=== PATIENT | female | born 2000 | race Caucasian/White ===

== ENCOUNTER 2025-04-18 11:01 | Outpatient (AMB) | payer BC, SELFPAY ==
--- NOTE | 2025-04-18 11:10 | AMB.OBINITIA ---
Vital Signs 04/18/25 11:11 Height 1.68 m Height Method Stated Weight 108.465 kg Weight Measurement Method Standing Scale BMI 38.5 BP 122/77 Blood Pressure Source Automatic Cuff Blood Pressure Location Left Upper Arm Position Sitting Respiration 17 Pulse 95 Pulse Source Monitor Temp 97.3 F Temp Source Temporal Artery Scan Pulse Oximetry (%) 95 Oxygen Delivery Method Room Air Allergies/Home Meds Allergies & Medications Allergies No Known Allergies Allergy (Verified 04/18/25 11:15) Medication Reconciliation acyclovir 400 mg tablet 400 mg PO TID 04/18/25 [History Confirmed 04/18/25] aspirin 81 mg tablet 81 mg PO QDAY 04/18/25 [History Confirmed 04/18/25] vitamin-ferrous fumarate 28 mg iron-folic acid 800 mcg tablet ( Vitamins with Minerals) 1 tab PO QDAY #60 tabs 04/18/25 [Rx] Intake Visit Data Collection New Patient or Established: New Patient (never been to [facility]) Reason for Visit:: OB TRANSFER Seen by Clinical Staff ONLY (RN/MA): No Payroll Accounting Clerk Required: No Do You Feel Safe at Home: Yes Authorities Contacted: N/A PCP or OBGYN visit in last 3 months: No Hx Now: Yes Are you currently on any form of Control: No Last menstrual period: 08/10/24 Pain Present Currently: No Pain Scale Used: Lazaro-Casillas/Numerical Pain scale:: 0 Smoking Status Smoking Status: Never smoker Questionnaires Covid-19 Vaccine Questionnaire Has patient been vacinated for Covid-19 Have you been vacinated for Covid-19: Yes PHQ-9 PHQ-2 Over the last 2 weeks, how often have you been bothered by any of the following problems? 1. Little interest or pleasure in doing things: not at all 2. Feeling down, depressed, or hopeless: not at all Total score: 0 PHQ-9 3. Trouble falling or staying asleep, or sleeping too much: Not at all 4. Feeling tired or having little energy: Not at all 5. Poor appetite or overeating: Not at all 6. Feeling bad about yourself - or that you are a failure or have let yourself or your family down: Not at all 7. Trouble concentrating on things, such as reading the newspaper or watching television: Not at all 8. Moving or speaking so slowly that other people could have noticed? - Or the opposite - being so fidgety or restless that you have been moving around a lot more than usual: not at all 9. Thoughts that you would be better off or of hurting yourself in some way: Not at all Total score: 0 If you checked off any problems, how difficult have these problems made it for you to do your work, take care of things at home, or get along with other people?: not difficult at all Source: Developed by Drs. Akash Chavis, Mellisa Lizama, Dc Gomes and colleagues, with an educational henrietta from [employer]. Depression screen completed yes Social History Living Situation History Marital Status: Single Lives With: Significant Other Housing: House Tobacco History Smoking Status: Never smoker Second Hand Smoke Exposure: Yes Alcohol History Alcohol Intake: Never Substance Use History Substance Use: THC Domestic Abuse History Do You Feel Safe at Home: Yes History of Present Illness HPI Narrative 24-year-old 1 para 0 for OBI. Patient was getting her initial care in [facility] and brought records. Last period August 13, 2024. Estimated due date. Based on LMP is May 20, 2025. Patient had a 10-week ultrasound on October 23, 2024 that confirmed dates. And patient's 28-week ultrasound in February confirm dates and reported that the baby is growing 68th percentile. Patient has a history of HSV-2. And she has been taking acyclovir 400 mg 3 times daily. History of marijuana use with . Denies surgeries. Denies chronic illness. Patient is rubella nonimmune. The NIPT and carrier screens were negative. Hepatitis B was negative. Spinal muscular atrophy was negative. Cystic fibrosis screen negative. And no other labs for able to be obtained. Reports movement. Denies leaking, bleeding, contractions. Patient has not had an outbreak of herpes. Patient got flu and Tdap with . OB Initial Visit OB Flowsheet OB Flowsheet Initial Weight: Not Recorded Date <del>?</del> EGA Weight BP Alb Glu CTX Pres Fundal ht FHR Mov Dilation Station Effacement Hx Notes Visit Note 04/18/25 <del>?</del> 35w 3d 108.465 kg 122/77 absent cephalic 35 145 active OB transfer from [facility]. With records. Last. August 13, 2024. Her estimated due date May 20, 2025. Patient had a 10-week ultrasound October 23 to confirm dates. History of HSV-2. Patient is been taking acyclovir 400 mg p.o. 3 times daily. And she has not had an outbreak in over 4 months. Denies leaking, bleeding, contractions Refill valacyclovir 400 3 times daily. I refilled her prenatals. GBS today. And also NuSwab plus. Patient has heavy yeast and greenish discharge with foul odor. So I gave patient also Diflucan 150 p.o. daily x 3 and Flagyl 500 p.o. twice daily x 7. And will do an ultrasound for growth. Patient was vertex by ultrasound today. Return in 2 weeks OB check Menstrual History Menstrual reliability: approximate (month known) Flow: light Menstrual regularity: regular Monthly: Yes Age at menarche: 12 On control pills at conception: No OB History : 1 Infection History & Risk Evaluation History of STDs: none Patient or partner has history of Genital Herpes: Yes (HSV-2) Genetic Screening & History Genetic Screening/Teratology Counseling - Includes patient, baby's father, or anyone in either family with: 1. Patient's age 35 years or older as of estimated date of delivery: No 2. Thalassemia (Cameroonian, Urdu, Mediterranean, or Background); MCV less than 80: No 3. Neural Tube Defect (Meningomyelocele, Spina Bifida, or Anencephaly): No 4. Congenital Heart Defect: Yes 5. Down Syndrome: No 6. Chris-Sachs (Ashkenazi Presybeterian, Cajun, Syriac Marshallese): No 7. Kushal Disease (Ashkenazi Presybeterian): No 8. Familial Dysautonomia (Ashkenazi Presybeterian): No 9. Sickle Cell Disease or Trait (): No 10. Hemophilia or other blood disorders: No 11. Muscular Dystrophy: No 12. Cystic Fibrosis: No 13. Vera's Chorea: No 14. Mental Retardation/Autism: Yes 15. Other inherited genetic or chromosomal disorder: No 16. Maternal Metabolic Disorder (EG,TYPE 1 Diabetes, PKU): No 17. Patient or baby's father had a child with defects not listed above: No 18. Recurrent loss or a stillbirth: No 19. Medications (including supplements, vitamins, herbs or otc drugs)/illicit/recreational drugs/alcohol since last menstrual period: No 20. Any other: No Infection History 1. Live with someone with TB or exposed to TB: No 2. Rash or viral illness since last menstrual period: No Other (see comments) Source: [employer] Review of Systems Review of Systems Systems Reviewed: All systems reviewed, normal except as documented Exam General Limitations: no limitations General Appearance: alert, in no apparent distress, comfortable, cooperative, healthy appearing, well developed and well groomed Head Head exam: atraumatic, normocephalic and normal inspection Neck Neck exam: Present normal inspection, full ROM and trachea midline Chest Chest inspection: Present normal inspection and symmetric chest wall rise Resp Respiratory exam: Present normal lung sounds bilaterally Card Cardiovascular exam: Present regular rate, normal rhythm and normal heart sounds Abdominal Abdominal exam: Present soft and normal bowel sounds Psych Psychiatric exam: Present normal affect and normal mood Office Procedures OBC Clinic LOC & Office Proc's Nursing/Assessment Patient Status: Established Patient OB Clinic Nursing Assessment: Medication Reconciliation, Update PMH in EMR and Vital Signs OB Clinic Coordination of Care: Complex Care and Chronic Disease 1-5, Education Complex Pt/Fam, Consent,records obtained, informed consent, Lab and Imaging orders and Staff clarify orders Special Needs: Heart tones Established Patient Charge Established Patient Point Assignment: 135 Established Patient Point Charge: EP Level 4 (120-155) Assessment & Plan Diagnosis / Problem List (1) Encounter for supervision of high risk in third trimester, antepartum: Status: Acute (2) Genital herpes affecting : Status: Acute Plan Refill acyclovir 400 3 times daily. And refill prenatals. Diflucan 150 p.o. daily x 3. And Flagyl 500 p.o. twice daily x 7 days. We did GBS and NuSwab plus today. I discussed safe sex practices with patient and she is to be vigilant about any lesions that are new on her perineal area. Kick count twice a day. Sono for growth. Return in 2 weeks for recheck Additional Plan Follow Up: 2 Weeks (obc)
[2025-04-18 11:11] VITALS: BP 122/77; PULSE 95; RESP 17; TEMP 36.3; O2SAT 95; BMI 38.5
== END 2025-04-18 11:57 | disposition home or self-care (01) ==
LOC: HODSOBC 11:01
PROVIDERS: Supervising Provider Advanced Practice Midwife; Visit Provider Advanced Practice Midwife
DX: O09.893 Supervision of other high risk pregnancies, third trimester (principal); O98.313 Other infections with a predominantly sexual mode of transmission complicating pregnancy, third trimester; A60.00 Herpesviral infection of urogenital system, unspecified; O98.813 Other maternal infectious and parasitic diseases complicating pregnancy, third trimester; B37.49 Other urogenital candidiasis; Z3A.35 35 weeks gestation of pregnancy
CPT/HCPCS: 99214; G0463

== ENCOUNTER 2025-04-29 14:19 | Outpatient (AMB) | payer BC, SELFPAY ==
[2025-04-29 14:24] VITALS: BP 126/85; PULSE 91; RESP 18; TEMP 36.6; O2SAT 96; BMI 39.4
--- NOTE | 2025-04-29 14:24 | OBCLNT_ITS ---
Vital Signs 04/29/25 14:24 Height 1.68 m Height Method Stated Weight 111.357 kg Weight Measurement Method Standing Scale BMI 39.4 BP 126/85 H Blood Pressure Source Automatic Cuff Blood Pressure Location Left Upper Arm Position Sitting Respiration 18 Pulse 91 Pulse Source Monitor Temp 97.8 F Temp Source Oral Pulse Oximetry (%) 96 Oxygen Delivery Method Room Air Allergies/Home Meds Allergies & Medications Allergies No Known Allergies Allergy (Verified 04/29/25 14:25) Medication Reconciliation aspirin 81 mg tablet 81 mg PO QDAY 04/18/25 [History Confirmed 04/29/25] vitamin-ferrous fumarate 28 mg iron-folic acid 800 mcg tablet ( Vitamins with Minerals) 1 tab PO QDAY #60 tabs 04/18/25 [Rx Confirmed 04/29/25] acyclovir 400 mg tablet 400 mg PO TID #30 tabs 04/29/25 [Rx] Intake Visit Data Collection New Patient or Established: Established Patient (seen at [facility] within 3 years) Reason for Visit:: CARE Seen by Clinical Staff ONLY (RN/MA): No Business Services Associate Required: No Do You Feel Safe at Home: Yes Authorities Contacted: N/A PCP or OBGYN visit in last 3 months: Yes Hx Now: Yes Are you currently on any form of Control: No Pain Present Currently: No Pain Scale Used: Lazaro-Casillas/Numerical Pain scale:: 0 Smoking Status Smoking Status: Never smoker Immunizations Flu Vaccine in the Last 12 Months: Yes Date of most recent flu vaccination: 04/01/25 Flu Vaccine Exclusion Criteria: Already Received Questionnaires Covid-19 Vaccine Questionnaire Has patient been vacinated for Covid-19 Have you been vacinated for Covid-19: Yes PHQ-9 PHQ-2 Over the last 2 weeks, how often have you been bothered by any of the following problems? 1. Little interest or pleasure in doing things: not at all 2. Feeling down, depressed, or hopeless: not at all Total score: 0 PHQ-9 3. Trouble falling or staying asleep, or sleeping too much: Not at all 4. Feeling tired or having little energy: Not at all 5. Poor appetite or overeating: Not at all 6. Feeling bad about yourself - or that you are a failure or have let yourself or your family down: Not at all 7. Trouble concentrating on things, such as reading the newspaper or watching television: Not at all 8. Moving or speaking so slowly that other people could have noticed? - Or the opposite - being so fidgety or restless that you have been moving around a lot more than usual: not at all 9. Thoughts that you would be better off or of hurting yourself in some way: Not at all Total score: 0 Source: Developed by Drs. Akash Chavis, Mellisa Lizama, Dc Gomes and colleagues, with an educational henrietta from [employer]. Depression screen completed yes Social History Living Situation History Lives With: Significant Other Housing: House Tobacco History Smoking Status: Never smoker Second Hand Smoke Exposure: Yes Alcohol History Alcohol Intake: Never Substance Use History Substance Use: THC Domestic Abuse History Do You Feel Safe at Home: Yes Care OB Visit Log OB Flowsheet Initial Weight: Not Recorded Date -?-?-?-?-?-?-?-?-?-?-?-?- EGA Weight BP Alb Glu CTX Pres Fundal ht FHR Mov Dilation Station Effacement Hx Notes Visit Note 04/18/25 -?-?-?-?-?-?-?-?-?-?-?-?- 35w 3d 108.465 kg 122/77 absent cephalic 35 14 5 active OB transfer from [facility]. With records. Last. August 13, 2024. Her estimated due date May 20, 2025. Patient had a 10-week ultrasound October 23 to confirm dates. History of HSV-2. Patient is been taking acyclovir 400 mg p.o. 3 times daily. And she has not had an outbreak in over 4 months. Denies leaking, bleeding, contractions Refill va lacyclovir 400 3 times daily. I refilled her pr enatals. GBS today. And also NuSwab plus. Patient has heavy yeast and greenish discharge with foul odor. So I gave patient also Diflucan 150 p.o. daily x 3 and Flagyl 500 p.o. twice daily x 7. And will do an ultrasound for growth. Patient was vertex by ultrasound today. Return in 2 weeks OB check 04/29/25 -?-?-?-?-?-?-?-?-?-?-?-?- 37w 0d 111.357 kg 126/85 absent cephalic 37 14 5 active Reports good movement. Denies any leaking, bleeding, contractions. Denies any active herpes lesions. Patient is been taking her acyclovir. She is completing her Flagyl 500 twice daily x 7 for her bacterial vaginosis and she already completed the medication the Diflucan she was given for yeast infection. Reviewed labs with patient. Continue labor precautions. Kick count twice a day. Discussed danger signs symptoms. Return in a week OB check JACOB Calculator Estimated Delivery Date Method Current WG Current Estimate 05/20/25 LMP (Certain) 37w 0d Other Estimates 05/21/25 Ultrasound #1 36w 6d 05/21/25 Ultrasound #2 36w 6d 05/20/25 Manual 37w 0d final jacob: 05/10 08/03, efw 63% Notes Visit Date: 04/29/25 Last Updated by: Vanna Swain, CNM 24 yo . lmp 08/13/24. EDC: 05/20/25. OB Panel: GBS-, rub NI, Hbsag-,hiv-,hc-, GC/T-, O+,abs-, rpr::NR 14/43/253. 1 hr gtt: wnl, A1c: 5.7, carrier screen-, + herpes, no out break Office Procedures OBC Clinic LOC & Office Proc's Nursing/Assessment Patient Status: Established Patient OB Clinic Nursing Assessment: Medication Reconciliation, Update PMH in EMR and Vital Signs OB Clinic Coordination of Care: Complex Care and Chronic Disease 1-5, Consent, records obtained, informed consent, Education Simp Pt/Fam, 1 Ins Authorization, Lab and Imaging orders, Results/Orders obtained and Staff clarify orders Special Needs: Heart tones Established Patient Charge Established Patient Point Assignment: 150 Established Patient Point Charge: EP Level 4 (120-155) Assessment & Plan Diagnosis / Problem List (1) Encounter for supervision of high risk in third trimester, antepartum: Status: Acute Plan Refill acyclovir 400 3 times daily. Discussed labor precautions and kick count twice a day. Reviewed signs symptoms of herpes outbreak and danger signs symptoms. Discussed safe sex. And return in a week OB check Additional Plan Follow Up: 1 Week (obc)
== END 2025-04-29 14:42 | disposition home or self-care (01) ==
LOC: HODSOBC 14:19
PROVIDERS: Supervising Provider Advanced Practice Midwife; Visit Provider Advanced Practice Midwife
DX: O09.893 Supervision of other high risk pregnancies, third trimester (principal); O98.313 Other infections with a predominantly sexual mode of transmission complicating pregnancy, third trimester; A60.00 Herpesviral infection of urogenital system, unspecified; Z3A.37 37 weeks gestation of pregnancy
CPT/HCPCS: 99214; G0463

== ENCOUNTER 2025-05-08 14:09 | Inpatient (IN) | payer BC, SELFPAY ==
[2025-05-08] VITALS (22 sets, daily range): BP systolic 113–142; BP diastolic 66–92; PULSE 53–116; RESP 14–97; TEMP 36.5–36.8; O2SAT 82–97; BMI 40.7
[2025-05-08 15:14] LABS: ROM Kit Exp Date# 041128; ROM Kit Lot # 58106258
[2025-05-08 15:15] LABS: ROM Swab Mixed By: MEDIA1; Rupture of Fetal Membranes Positive (Negative); Swb Mxed in Solvent 1 min? Yes
--- NOTE | 2025-05-08 15:30 | XR_ITS ---
Examination: Complete OB ultrasound greater than 14 weeks Date and time of exam: May 08, 2025, 1346 hours INDICATIONS: Labor evaluation today Findings: Viable intrauterine single fetus with single amniotic sac presentation Vertex Cardiac motion 144 bpm Placenta anterior grade 2 Medical cord insertion seen Amniotic fluid index 20.1 cm Ovaries obscured by the gestation. Composite estimated gestational age based on BPD, head circumference, abdominal circumference, femur length is 37 weeks 1 day Estimated weight 3138 g. Survey of intracranial anatomy, spinal anatomy, abdominal anatomy, four-chamber heart performed with no abnormalities identified. Impression: Viable intrauterine gestation in vertex presentation.
[2025-05-08 16:39] LABS: Basophils # (Auto) 0.1 Thou/mm3 (0.0-0.2); Basophils % (Auto) 1 % (0-2.5); Eosinophils # (Auto) 0.5 Thou/mm3 (0.0-0.5); Eosinophils % (Auto) 6 % (0-10); Hematocrit 40.3 % (36.0-46.0); Hemoglobin 13.8 g/dL (12.0-16.0); Immature Granulocytes Auto 0.03 Thou/mm3 (0.00-0.00); Lymphocytes # (Auto) 1.7 Thou/mm3 (1.0-4.8); Lymphocytes % (Auto) 20 % (10-50); Mean Corpuscular HGB Conc 34.2 g/dl (31.0-37.0); Mean Corpuscular Hemoglobin 28.7 pg (25.0-35.0); Mean Corpuscular Volume 84 fL (80-100); Monocytes # (Auto) 0.6 Thou/mm3 (0.0-0.8); Monocytes % (Auto) 7 % (0-12); Neutrophils # (Auto) 5.9 Thou/mm3 (1.8-7.7); Neutrophils % (Auto) 66 % (37-80); Nucleated Red Blood Cell # 0.00 Thou/mm3 (0.00-0.00); Nucleated Red Blood Cell % 0 /100 WBC (0); Platelet Count 205 Thou/mm3 (140-440); RDW Standard Deviation 43.0 fL (36.4-46.3); Red Blood Count 4.81 Miln/mm3 (4.00-5.20); White Blood Count 8.8 Thou/mm3 (3.6-11.0)
[2025-05-08 16:57] LABS: Syphilis Nonreactive (Nonreactive)
[2025-05-09] VITALS (83 sets, daily range): BP systolic 99–143; BP diastolic 57–113; PULSE 75–117; RESP 14–20; TEMP 36.5–37.1; O2SAT 93–97
[2025-05-09 02:14] LABS: Amphetamine/Metham Scrn,Ur OB Negative (Negative); Benzoylecgonine Screen, Ur OB Negative (Negative); Opiate Screen,Urine OB Negative (Negative); THC Screen,Urine OB Negative (Negative)
--- NOTE | 2025-05-09 02:26 | PD.LDHP ---
Documentation for date of: 05/09/25 OB Labor/Induct. HPI History of Present Illness Chief complaint: ROM,early labor : 1 Para: 0 Term pregnancies: 0 pregnancies: 0 Living children: 0 History of Abortions: Spontaneous and Elective: 0 History of Vaginal deliveries: 0 History of sections: No History of : No Date of last menstrual period: 08/13/24 JACOB: 05/20/25 Gestational Age (weeks): 38 Gestational Age (days): 4 Gestational age based on last menstrual period: 38 History of present illness: 24-year-old 1 para 0 admitted with complaints of leaking fluid since 1300. Patient was a transfer from [facility] with records. Her first visit 35 weeks. Last. August 13, 2024. Estimated due date May 20, 2025. Patient denies chronic illness. Denies social habits. Denies surgery. She has a history of herpes. She has been taking acyclovir and her last outbreak is over a year. Patient is O+, antibody screen negative, RPR nonreactive, rubella immune, hepatitis B negative, hep C negative, HIV negative, GC and Chlamydia were negative. A1c was 5.7. NIPT and carrier screens negative. GBS negative History of Present Dating criteria: LMP confirmed by 1st trimester US Adequate Care: Yes Ultrasounds: normal 1st trimester US and normal mid trimester US Obstetrical complications: none Medical complications: none Past Medical History Surgical History SURGICAL: Negative Section Meds Home Medications and Allergies Allergies Allergy/AdvReac Type Severity Reaction Status Date / Time No Known Allergies Allergy Verified 05/08/25 18:04 OB Exam Physical Exam Vital signs: Temp Pulse Resp BP Pulse Ox O2 Del Method 98.0 F 83 14 109/71 97 Room Air 05/09/25 00:00 05/09/25 01:13 05/09/25 00:00 05/09/25 01:13 05/08/25 15:44 05/08/25 17:45 Narrative: Alert and oriented. Normal heart rate and rhythm. Lungs clear no wheezes. Gravid abdomen. Gynecoid pelvis. Estimated weight 7 pounds 10 ounces. Vaginal exam was long and 3. -3. Vertex. Leaking clear fluid. Positive AmniSure. heart rate category 1 with accelerations and moderate variability and occasional contraction Detailed Labor and Delivery Exam Dilation (cm): 3 Effacement (%): long Cervix position: posterior station: -3 Consistency: medium Presentation: Vertex Cervical ripeness score: 4 Amniotic fluid: clear Baseline heart rate: 145 monitor accelerations: 15x15 monitor decelerations: None exterminator helper termite variability: Moderate (11-25) Contraction frequency (min): irreg Contraction duration (sec): mild Tachysystole: No Contraction intensity: Mild OB Results Labs 05/08/25 15:45 Labs: Short CBC 05/08/25 Range/Units 15:45 WBC 8.8 (3.6-11.0) Thou/mm3 Hgb 13.8 (12.0-16.0) g/dL Hct 40.3 (36.0-46.0) % Plt Count 205 (140-440) Thou/mm3 OB Assessment & Plan Assessment and Plan (1) Normal labor and delivery: Status: Acute Additional Plan Induction method: per misoprostol protocol Plan: augmentation, anticipate NVD and consult MD chavez
[2025-05-09] MEDS: RINGERS LACTATED 1000 ML 1,000 ML 100 ML IV ×3 (03:19→13:32)
[2025-05-09] MEDS: Ampicillin Inj 2,000 MG in SODIUM CHLORIDE 0.9% (POP) 100 ML 100 MG IV (03:20)
[2025-05-09] MEDS: fentaNYL CIT INJ 50 mCg/ML AMP 2ML 100 MCG IVP ×2 (07:09→09:49)
[2025-05-09] MEDS: Ampicillin Inj 1,000 MG in SODIUM CHLORIDE 0.9% (Popper) 50 ML 50 MG IV ×2 (07:21→11:24)
[2025-05-09] MEDS: OXYTOCIN in NS 30 units 30 UNIT/500 ML BAG IV (08:08)
--- NOTE | 2025-05-09 09:01 | ESPR_ITS ---
Documentation for date of: 05/09/25 OB Labor Progress Note Pain Control Pain control: tolerating well Pelvic Exam Dilation (cm): 4.5 Effacement (%): 90 station: -2 Amniotic membrane status: Ruptured Contractions Monitor mode: Internal Contraction frequency: 2-4.5 Contraction intensity: Mild Status status: Category l Assessment and Plan Pitocin rate (mU/min): 1 Assessment: other Plan OB labor note: continuous present management CNM Management MD Consulted (describe details below): Yes History of Present Illness HPI 24-year-old 1 para 0 admitted with complaints of leaking fluid since 1300. Patient was a transfer from [facility] with records. Her first visit 35 weeks. Last. August 13, 2024. Estimated due date May 20, 2025. Patient denies chronic illness. Denies social habits. Denies surgery. She has a history of herpes. She has been taking acyclovir and her last outbreak is over a year. Patient is O+, antibody screen negative, RPR nonreactive, rubella immune, hepatitis B negative, hep C negative, HIV negative, GC and Chlamydia were negative. A1c was 5.7. NIPT and carrier screens negative. GBS negative
[2025-05-09] MEDS: ceFAZolin/D5W 2 GM IV 2 GM/100 ML BAG IV (15:48)
[2025-05-09] MEDS: FAMOTIDINE INJ 10 MG/ML VIAL 2 ML 20 MG IV (15:48)
[2025-05-09] MEDS: METOCLOPRAMIDE INJ 5 MG/ML VIAL 2 ML 10 MG IVP (15:49)
--- NOTE | 2025-05-09 16:44 | ESOP_ITS ---
Operative Note - DIRECTOR OF PERIOPERATIVE SERVICES Procedure Date of procedure: 05/09/25 Procedure Performed: Primary Low Transverse Indication: 24-year-old G1, P0 at 38 weeks and 3 days with rupture of membranes over 24 hours Category 2 heart rate tracing with minimal variability and recurrent late decelerations Failure to progress Anesthesia type: Spinal Procedure description: Informed consent was obtained and the patient was taken to the operating room. Identity was confirmed by double identifiers and she was placed on the operating table. Spinal anesthesia was administered and she was positioned in the supine position. The abdomen and perineum were prepped in the usual sterile fashion and a Devi catheter was placed to continuous drainage. Sterile drapes were geoff lied. The incision site was tested for adequacy of anesthesia. A Pfannenstiel skin incision was made with a scalpel and carried to the subcutaneous fat up to the rectus fascia. The rectus fascia was incised on either side of the midline and the incisions were extended bilaterally. The fascia was gently dissected off the ventral surface of the rectus muscle both superiorly and inferiorly. The rectus bellies were gently in the midline and the peritoneum was identified and entered bluntly using the surgeon's finger. The peritoneal opening was now stretched to create an adequate opening for access to the uterus. Rom O-ring retractor was placed for adequate visualization. The anterior surface of the uterus was palpated. The bladder reflection was identified and a Izabela Clements low transverse uterine incision was made in the lower uterine segment taking care to avoid the bladder. Uterine entry was accomplished bluntly and the opening was stretched to create adequate room. The amniotic membranes were now ruptured and clear amniotic fluid was released. The fetus was noted to be in the vertex position. The head was gently elevated out of the maternal pelvis and the rest of the shoulders and body were delivered by gentle fundal pressure. Umbilical cord was doubly clamped, divided and the was handed over to the waiting team. Cord gas samples were obtained. The placenta was delivered by gentle traction on the umbilical cord. The interior of the uterus was now thoroughly cleaned of all blood and debris and membranes. The hysterotomy angles were grasped by a pair of Allis clamps and the hysterotomy was closed using 1 Monocryl suture in 2 layers. The first layer was used to approximate the muscle in a running locked fashion, the second layer was used to approximate the thickness of the myometrium and uterine serosa in an imbricated manner. Once the repair was completed the hysterotomy was inspected and noted to be adequately hemostatic. The hysterotomy was once again inspected and hemostasis was noted to be satisfactory. The Rom retractor was now removed. The peritoneal edges were re approximated. The rectus muscles were re approximated. The rectus fascia was now repaired using 0 Vicryl suture in a running fashion. The subcutaneous layer was now copiously irrigated using warm normal saline. All bleeding points were cauterized using the Bovie. The subcutaneous fat was closed using 3-0 Vicryl. The skin was closed using INSORB jonathan in a subcuticular fashion. The skin was cleaned and a sterile dressing was applied. The patient was now undraped, the abdomen and back were thoroughly cleaned and she was transferred to the recovery room in a stable and awake condition. The patient tolerated the entire procedure well. No complications were encountered. All instrument, sponge and lap counts were correct x2. Specimen: none Estimated blood loss (ml): 600 Complications: none Surgical staff Operation Date: 05/09/25 16:15 <No data on this case meets the specified criteria> Diagnosis Discharge Diagnosis (1) Encounter for supervision of high risk in third trimester, antepartum: Status: Acute (2) Genital herpes affecting : Status: Acute (3) delivery delivered: Status: Acute Problem List Completed Was Problem List Reviewed/Reconciled?: Yes
--- NOTE | 2025-05-09 16:48 | PD.LDDELS ---
Data (Gee) Data Hx Section: No : 1 Term: 0 : 0 Livin Abortions: Spontaneous & Theraputic: 0 Delivery Data (Gee) Labor Data ROM date: 05/08/25 ROM time: 13:45 Amniotic membrane rupture type: Spontaneous Amniotic fluid description: Blood Tinged Delivery Data Delivered by: Vanna Swain Delivery Method Presentation: Vertex Anesthesia Type Anesthesia type: Spinal
[2025-05-09] MEDS: ACETAMINOPHEN 325 MG TABLET 650 MG PO (21:03)
[2025-05-09] MEDS: OXYTOCIN in NS 20 units 20 UNIT/1,000 ML BAG 125 UNIT IV (21:56)
[2025-05-10 04:15] VITALS: BP 105/63; RESP 18; TEMP 36.9; O2SAT 95
[2025-05-10] MEDS: RINGERS LACTATED 1000 ML 1,000 ML 125 ML IV (06:22)
[2025-05-10 06:24] LABS: Basophils # (Auto) 0.1 Thou/mm3 (0.0-0.2); Basophils % (Auto) 0 % (0-2.5); Eosinophils # (Auto) 0.2 Thou/mm3 (0.0-0.5); Eosinophils % (Auto) 2 % (0-10); Hematocrit 31.4 % (36.0-46.0); Hemoglobin 10.7 g/dL (12.0-16.0); Immature Granulocytes Auto 0.04 Thou/mm3 (0.00-0.00); Lymphocytes # (Auto) 2.1 Thou/mm3 (1.0-4.8); Lymphocytes % (Auto) 18 % (10-50); Mean Corpuscular HGB Conc 34.1 g/dl (31.0-37.0); Mean Corpuscular Hemoglobin 28.8 pg (25.0-35.0); Mean Corpuscular Volume 85 fL (80-100); Monocytes # (Auto) 0.9 Thou/mm3 (0.0-0.8); Monocytes % (Auto) 7 % (0-12); Neutrophils # (Auto) 8.3 Thou/mm3 (1.8-7.7); Neutrophils % (Auto) 72 % (37-80); Nucleated Red Blood Cell # 0.00 Thou/mm3 (0.00-0.00); Nucleated Red Blood Cell % 0 /100 WBC (0); Platelet Count 168 Thou/mm3 (140-440); RDW Standard Deviation 44.3 fL (36.4-46.3); Red Blood Count 3.71 Miln/mm3 (4.00-5.20); White Blood Count 11.6 Thou/mm3 (3.6-11.0)
[2025-05-10 08:25] VITALS: BP 109/64; PULSE 85; RESP 16; TEMP 36.6; O2SAT 95
[2025-05-10] MEDS: DOCUSATE SOD 100 MG CAPSULE PO (08:51)
[2025-05-10 10:54] VITALS: BP 126/83; PULSE 92; RESP 16; TEMP 36.7; O2SAT 96
--- NOTE | 2025-05-10 10:59 | EKG_ITS ---
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
[2025-05-10] MEDS: SIMETHICONE 80 MG CHEW PO (11:02)
--- NOTE | 2025-05-10 11:02 | PD.LDPPPRG ---
Subjective Subjective Interval history: Patient has no/ complaints Headache no Blurry vision no Chest pain no when I rounded but now c/o to RN Plan an EKG patients VSS Palpitations no Shortness of breath no Nausea or vomiting or constipation no Back pain no Dysuria no Dizziness no calf pain no She is voiding spontaneously after catheter removal yes Passing flatus yes Lochia minimal yes Exam Vital Signs Temp Pulse Resp BP Pulse Ox O2 Del Method 98.1 F 92 16 126/83 96 Room Air 05/10/25 10:54 05/10/25 10:54 05/10/25 10:54 05/10/25 10:54 05/10/25 10:54 05/10/25 10:54 Narrative Exam alert x3 chest clear CVS RRR NO thromegaly Uterus is nontender Uterus is firm Just below the umbilicus Bowel sounds present Abdomen soft no hernias noted/no CVAT Incision CDI No drainage Appropriately tender No calf tenderness Edema mild Objective Labs 05/10/25 05:30 Labs: Laboratory Results - last 24 hr 05/10/25 05:30 WBC 11.6 H RBC 3.71 L Hgb 10.7 L D Hct 31.4 L MCV 85 MCH 28.8 MCHC 34.1 RDW Std Deviation 44.3 Plt Count 168 D Neut % (Auto) 72 Lymph % (Auto) 18 [place] % (Auto) 7 Eos % (Auto) 2 Baso % (Auto) 0 Neut # (Auto) 8.3 H Lymph # (Auto) 2.1 Traverse # (Auto) 0.9 H Eos # (Auto) 0.2 Baso # (Auto) 0.1 Immature Gran # (Auto) 0.04 H Absolute Nucleated RBC 0.00 Immature Gran % 0 Nucleated RBC % 0 Assessment & Plan Problem List (1) Encounter for supervision of high risk in third trimester, antepartum: Problem details: patient delivered Status: Acute (2) Genital herpes affecting : Problem details: not active Status: Acute (3) delivery delivered: Status: Acute Assessment and plan: Routine POD #1 care Time Spent With Patient Time: Total time spent is greater than 50% in coordination of care (as documented) at patient's floor/unit and/or counseling patient:
--- NOTE | 2025-05-10 12:05 | PC.SS ---
Computer Bookkeeper received a consultation that patient was late to care at 34-weeks. SW reviewed patient's EMR, patient received regular care from [facility]. No need for referral.
[2025-05-10 16:00] VITALS: BP 132/85; PULSE 94; RESP 16; TEMP 36.6; O2SAT 97
[2025-05-10] MEDS: IBUPROFEN TAB 400 MG TABLET 800 MG PO (16:03)
[2025-05-10 20:09] VITALS: BP 114/68; PULSE 100; RESP 18; TEMP 36.9; O2SAT 95
[2025-05-10 23:30] VITALS: BP 107/71; PULSE 74; RESP 18; TEMP 37; O2SAT 95
[2025-05-11 04:02] VITALS: BP 108/71; PULSE 77; RESP 18; TEMP 37.4; O2SAT 97
[2025-05-11 07:23] VITALS: BP 121/79; PULSE 95; RESP 16; TEMP 36.3; O2SAT 96
[2025-05-11] MEDS: IBUPROFEN TAB 400 MG TABLET 800 MG PO (07:37)
--- NOTE | 2025-05-11 08:35 | ESDS_ITS ---
DS: Providers Provider Date of admission: 05/08/25 15:31 Primary care physician: Physician No Primary/Family Admitting Provider: Vanna Swain CNM Attending Provider on Admission: Felix Larkin MD Consults: 05/09/25 19:25 Referral Routine Comment: Attending Provider on DC: Tameka Lindsay MD Discharging Provider: Tameka Lindsay MD DS: Diagnosis Discharge Diagnosis (1) delivery delivered: Status: Acute (2) Genital herpes affecting : Status: Acute Problem List Completed Was Problem List Reviewed/Reconciled?: Yes Summary/Hosp Course Brief History: 24-year-old 1 para 0 admitted with complaints of leaking fluid since 1300. Patient was a transfer from [facility] with records. Her first visit 35 weeks. Last. August 13, 2024. Estimated due date May 20, 2025. Patient denies chronic illness. Denies social habits. Denies surgery. She has a history of herpes. She has been taking acyclovir and her last outbreak is over a year. Patient is O+, antibody screen negative, RPR nonreactive, rubella immune, hepatitis B negative, hep C negative, HIV negative, GC and Chlamydia were negative. A1c was 5.7. NIPT and carrier screens negative. GBS negative/ Patient is POD #2 and doing well Peripartum Data Delivery Method: Low Transverse Episiotomy Description: None Procedures: Procedures Operation Date: 05/09/25 16:15 Actual Procedure Side Surgeon p in OB Not Applicable Felix Larkin MD complications: none Status at Discharge Cognitive/behavioral status at discharge: normal Functional status at discharge: independent ambulation Overall status at discharge: patient is progressing back to baseline Time Spent with Patient Time attestation: Total time spent providing and/or coordinating discharge services: Time spent: Less than 30 minutes Exam Vital Signs Temp Pulse Resp BP Pulse Ox O2 Del Method 97.4 F 95 16 121/79 96 Room Air 05/11/25 07:23 05/11/25 07:23 05/11/25 07:23 05/11/25 07:23 05/11/25 07:23 05/11/25 07:23 Narrative Exam alert x3 chest clear CVS RRR NO thromegaly Uterus is nontender Uterus is firm Just below the umbilicus Bowel sounds present Abdomen soft no hernias noted/no CVAT Incision CDI No drainage Appropriately tender No calf tenderness Edema 1 + Discharge Plan Plan Patient Disposition: HOME (Self Care) Prescriptions/Referrals Prescriptions/Med Rec: New hydrocodone-acetaminophen 5-325 mg tablet 1 tab PO Q8H MDD 3 PRN (Reason: pain) Qty: 10 0RF ibuprofen 600 mg tablet 600 mg PO TID PRN (Reason: pain) Qty: 30 0RF No Action acyclovir 400 mg tablet 400 mg PO TID Qty: 30 4RF vit-iron fum-folic ac [ Vitamin with Minerals] 28 mg iron- 800 mcg tablet 1 tab PO QDAY Qty: 60 3RF Referrals: No Primary/Family,Physician [Primary Care Provider] Patient/Caregiver Discharge Instructions Discharge Activity: activity as tolerated Other Discharge Activity Instructions:: pelvic rest x 6 weeks do not lift weight over 15 lbs follow up in 2 weeks with her doctor Education Materials: After a , C Section Dc Print Language: Ethiopian Stand Alone Forms: Carmela Award Info., Patient Portal Info Letter Discharge Order Discharge Orders: Discharge (Routine); Ordered 05/11/25 Ordered By: Tameka Lindsay Planned Discharge Date 05/11/25 (2) Genital herpes affecting Qualifiers: Trimester: unspecified trimester Qualified Code(s): O98.319 - Other infections with a predominantly sexual mode of transmission complicating , unspecified trimester; A60.09 - Herpesviral infection of other urogenital tract
[2025-05-11] MEDS: DOCUSATE SOD 100 MG CAPSULE PO (08:43)
== END 2025-05-11 15:40 | disposition home or self-care (01) | DRG 788 ==
LOC: S4SX 05-09 15:30 → S4NX 05-09 16:50
PROVIDERS: Admitting Provider Advanced Practice Midwife; Visit Provider Obstetrics & Gynecology
PROC: 10D00Z1 Extraction of Products of Conception, Low, Open Approach (ICD-10-PCS; CPT 59514; principal; 2025-05-09 16:00)
DX: O98.52 Other viral diseases complicating childbirth (principal); B00.9 Herpesviral infection, unspecified; Z3A.38 38 weeks gestation of pregnancy; Z37.0 Single live birth; O76 Abnormality in fetal heart rate and rhythm complicating labor and delivery
CPT/HCPCS: 36415; 59025; 76805; 80307; 84112; 85025; 86780; 86850; 86900; 86901; 93005; A4217; A4314; A4649; J0290; J0689; J2210; J2274; J2371; J2405; J2590; J2765; J2795; J3010; J3490; J7050; J7120; A9270; J2270

== ENCOUNTER 2025-06-20 08:55 | Outpatient (AMB) | payer BC, SELFPAY ==
--- NOTE | 2025-06-20 09:06 | AMB.OBPP ---
Vital Signs 06/20/25 09:07 Height 1.65 m Height Method Stated Weight 102.965 kg Weight Measurement Method Standing Scale BMI 37.8 BP 118/78 Blood Pressure Source Automatic Cuff Blood Pressure Location Right Upper Arm Position Sitting Respiration 18 Pulse 75 Pulse Source Monitor Temp 97.0 F Temp Source Temporal Artery Scan Pulse Oximetry (%) 95 Oxygen Delivery Method Room Air Allergies/Home Meds Allergies & Medications Allergies No Known Allergies Allergy (Verified 06/20/25 09:07) Medication Reconciliation vitamin-ferrous fumarate 28 mg iron-folic acid 800 mcg tablet ( Vitamins with Minerals) 1 tab PO QDAY #60 tabs 04/18/25 [Rx Confirmed 06/20/25] Intake Visit Data Collection New Patient or Established: Established Patient (seen at [facility] within 3 years) Reason for Visit:: Seen by Clinical Staff ONLY (RN/MA): No Test Design Engineer Required: No Do You Feel Safe at Home: Yes Authorities Contacted: N/A PCP or OBGYN visit in last 3 months: Yes Date of Last PCP or OBGYN visit: 06/09/25 Hx Now: No Are you currently on any form of Control: No Pain Present Currently: No Pain Scale Used: Laz[place]/Numerical Pain scale:: 0 Smoking Status Smoking Status: Never smoker Immunizations Flu Vaccine in the Last 12 Months: No Flu Vaccine Exclusion Criteria: No Exclusion Criteria ABLE BODIED SEAMAN: Past Medical History Past Medical History: No Hx Neurological Disorders, No Hx Cardiac Disorders, No Hx Cancer, No Hx Blood Disorders, No Hx Gastrointestinal Disorders, No Hx Renal Disease, No Hx Diabetes Mellitus Type 1 and No Hx Diabetes Mellitus Type 2 Questionnaires Covid-19 Vaccine Questionnaire Has patient been vacinated for Covid-19 Have you been vacinated for Covid-19: No Social History Living Situation History Marital Status: Lives With: Significant Other Housing: House Tobacco History Smoking Status: Never smoker Second Hand Smoke Exposure: Yes Alcohol History Alcohol Intake: Former Substance Use History Substance Use: THC Domestic Abuse History Do You Feel Safe at Home: Yes EPDS - PP Depression Screening [place] Pospartum Depression Screen I have been able to laugh and see the funny side of things: (0) As much as I always could I have looked forward with enjoyment to things: (1) Rather less than I used to I have blamed myself unnecessarily when things went wrong: (1) Not very often I have been anxious or worried for no good reason: (2) Yes, sometimes I have felt scared or panicky for no very good reason: (2) Yes, sometimes Things have been getting on top of me: (2) Yes, sometimes I haven't been coping as well as usual I have been so unhappy that I have had difficulty sleeping: (0) No, not at all I have felt sad or miserable: (2) Yes, quite often I have been so unhappy that I have been crying: (1) Only occasionally The thought of harming myself has occurred to me: (1) Hardly ever Total Score: EPDS Score: Referral is indicated for score of 9 or more, suicidal, or if provider believes patient is depressed regardless of score.: 12 EPDS completed yes HPI Interval History: Soo Emerson presents for a visit following a section delivery on May 09, 2025. She reports that everything is going pretty good overall. Her baby is doing well and has been really chill. She is currently . Regarding her incision site, she states that she honestly hasn't really been able to look at it and mentions having some residual tape from the surgery still present. She had been questioning whether she needed to wear a pad over the incision area but had not been doing so recently. She reports no specific concerns or complications at this visit. She has a history of section delivery on May 09, 2025. The patient delivered a healthy female via section and is currently . She is a female with an obstetric history of G1 T1 L1. She is currently her infant. ROS: Negative except as stated above, limited to ABLE BODIED SEAMAN and pertinent complaints. Exam Narrative Physical exam: - Abdominal: incision site examined. Residual surgical tape present. Incision appears to be healing well without signs of infection or complications. Office Procedures OBC Clinic LOC & Office Proc's Nursing/Assessment Patient Status: Established Patient OB Clinic Nursing Assessment: Medication Reconciliation, Update PMH in EMR and Vital Signs OB Clinic Coordination of Care: Complex Care and Chronic Disease 1-5, Education Complex Pt/Fam, Consent,records obtained, informed consent, Lab and Imaging orders, Results/Orders obtained and Staff clarify orders Established Patient Charge Established Patient Point Assignment: 110 Established Patient Point Charge: EP Level 3 (80-115) Antepartum Initial or Follow-up Antepartum Follow up Visit: Yes Assessment & Plan Diagnosis / Problem List (1) delivery delivered: Status: Acute (2) Encounter for routine follow-up: Status: Acute Plan status post : - Patient is approximately 6 weeks following delivery on May 09, 2025. - Incision site examination reveals good healing with some residual tape present. - Patient reports she has not been wearing abdominal pad and has been unable to examine the incision herself. - Baby is doing well and patient is successfully . Plan: - Daily incision care with soap and water to remove sweat and dry skin. - Residual tape may remain in place as it is dried and not problematic. - No abdominal pad needed. - Cleared for activities. - No further obstetric follow-up needed. - Call if any concerns arise.
[2025-06-20 09:07] VITALS: BP 118/78; PULSE 75; RESP 18; TEMP 36.1; O2SAT 95; BMI 37.8
== END 2025-06-20 09:17 | disposition home or self-care (01) ==
LOC: HODSOBC 08:55
PROVIDERS: Supervising Provider Obstetrics & Gynecology; Visit Provider Obstetrics & Gynecology
DX: Z39.2 Encounter for routine postpartum follow-up (principal); Z39.1 Encounter for care and examination of lactating mother
CPT/HCPCS: 99213; Z1034; G0463